=== PATIENT | male | born 1990 | race African-American/Black ===

== ENCOUNTER 2018-10-05 18:26 | Inpatient (IN) | payer OTHER ==
[~2018-10-05] VITALS: Ht 188 cm; Wt 81.6 kg
--- NOTE | 2018-10-05 18:57 | NUR ---
PT PRESENTS TO ED [facility] FOR SI. PER EMS PT GIRLFRIEND CALLED EMS BECAUSE PT WAS STATING HE WAS GOING TO KILL HIMSELF. EMS REPORT THAT PT ANSWERED YES TO SI NO TO HI. WHEN ASKED IF PT HAS PLAN TO HURT HIMSELF PT STATED "YES I WANT TO BE KILLED BY THE FOIL OPERATOR". PT ALSO STS HE HAS RT FOOT PAIN BECAUSE HE STEPPED OFF CURB AND TWISTED HIS FOOT. PT IS CALM/COOPERATIVE, AAOX4, RESP E/U, IN VIEW OF NURSES STATION. PT BELONGINGS LABELED AND PUT IN RADIO ROOM.
--- NOTE | 2018-10-05 19:06 | NUR ---
REPORT GIVEN TO MARY ANTHONY TO ASSUME CARE OF PT.
--- NOTE | 2018-10-05 19:16 | NUR ---
RECEIVED PATIENT FROM RESEARCH ARCHAEOLOGIST NURSE. PATIENT IS RESTING WITH BOTH EYES CLOSED. VS STABLE. SUICIDE PREC IN PLACE. PATIENT IS IN CLOSE VIEW OF NURSING STATION. BELONGINGS IN RADIO ROOM. WILL MONITOR CLOSELY.
[2018-10-05 19:44] LABS: BASOPHIL % 0.5 % (0-2); PLATELET COUNT 196 x10^3mcL (130-400)
[2018-10-05 19:49] LABS: RED CELL DISTRIBUTION WIDTH 15.2 % (11.5-14.5)
[2018-10-05 19:55] LABS: CALCIUM 9.3 mg/dL (8.5-10.1); CHLORIDE SERUM 104 mmol/L (98-107); GFR1 > 60 mL/min; GLUCOSE SERUM 92 mg/dL (74-106); POTASSIUM SERUM 3.9 mmol/L (3.5-5.1); SODIUM SERUM 143 mmol/L (136-145)
[2018-10-05 20:01] LABS: ALBUMIN 3.8 g/dL (3.4-5.0); ALKALINE PHOSPHATASE 66 U/L (46-116); ALT/SGPT 27 U/L (16-63); AST/SGOT 28 U/L (15-37); BILIRUBIN TOTAL 0.7 mg/dL (0.20-1.00); TOTAL PROTEIN, SERUM 6.9 g/dL (6.4-8.2)
--- NOTE | 2018-10-05 20:59 | NUR ---
PROVIDED WITH PATIENT WITH SANDWICH AT APPLE JUICE UPON REQUEST.
--- NOTE | 2018-10-05 21:18 | NUR ---
ENCOURAGED PATIENT TO PROVIDE URINE SAMPLE AT THIS TIME. PATIENT REFUSES TO PROVIDE SAMPLE. PATIENT TURNED BODY AND CLOSED EYES WHEN REQUESTED TO PROVIDE SAMPLE.
[2018-10-05 21:31] LABS: microscopic required? NO
--- NOTE | 2018-10-05 21:35 | NUR ---
PATIENT PROVIDED URINE SAMPLE.
[2018-10-05 21:44] LABS: UA SPECIFIC GRAVITY >=1.030 (1.005-1.035); urine erythrocyte NEGATIVE (NEGATIVE)
--- NOTE | 2018-10-05 22:05 | NUR ---
PATIENT SLEEPING. DENIES PAIN AND DISCOMFORT. SAFETY PREC IN PLACE.
[2018-10-05 22:53] LABS: AMPHETAMINE QUAL UR POSITIVE (See below)
--- NOTE | 2018-10-06 02:40 | NUR ---
SPOKE WITH TELE PSYCH DR MORENO. PROVIDED DR MORENO WITH BACKGROUND OF PATIENT. PATIENT SAT UP IN BED AND PREPARED FOR TELE PSYCH CONSULTATION.
--- NOTE | 2018-10-06 03:01 | NUR ---
PATIENT CLEARED BY TELE PSYCH DR MORENO. DR TRAN NOTIFIED.
--- NOTE | 2018-10-06 03:10 | NUR ---
DR MORENO CALLED AGAIN AND WITH FURTHER EVALUATION RECOMMENDS THAT THE PATIENT BE ADMITTED. DR TRAN NOTIFIED.
--- NOTE | 2018-10-06 04:48 | NUR ---
PATIENT RESTING EASY. NO C/O PAIN OR DISCOMFORT. SAFETY MEASURES REMAIN IN PLACE.
--- NOTE | 2018-10-06 05:26 | NUR ---
PATIENT PLACED ON 5150 HOLD AT THIS TIME FOR SUICIDAL IDEATION. PERSONAL BELONGINGS KEPT IN RADIO ROOM. SAFETY AND SUICIDE PREC IN PLACE. PATIENT ADVISED OF HOLD AND VERBALIZES UNDERSTANDING.
--- NOTE | 2018-10-06 05:48 | NUR ---
PT PLACED ON 5150 HOLD. PT ADVISED OF HOLD. PT VERBALIZED UNDERSTANDING OF HOLD. ORIGINAL HOLD PLACED IN CHART. PRIMARY RN RAJ AND ED DR TRAN INFORMED OF HOLD COMPLETION.
--- NOTE | 2018-10-06 07:08 | NUR ---
Packet received via fax, will begin looking for placement.
--- NOTE | 2018-10-06 07:22 | NUR ---
PATIENT CARE ENDORSED TO AM NURSE MARY THRASHER.
--- NOTE | 2018-10-06 07:30 | NUR ---
RECEIVED PATIENT IN ROOM 7, PATIENT SLEEPING BUT EASILY AROUSABLE. LUNGS - CTA. BS PRESENT X 4 QUADRANTS. B/L UPPER AND LOWER EXT PULSES PALPABLE. AWAITING FOR PLACEMENT AT THIS TIME. PATIENT IN FRONT OF NURSING STATION, B/P AND PULSES OX ON, PATIENT REFUSED TELE MONITORING AT THIS TIME. WILL CONTINUE TO MONITOR//APR RN
--- NOTE | 2018-10-06 08:55 | NUR ---
BREAKFAST GIVEN TO PATIENT AT THIS TIME//APR RN
--- NOTE | 2018-10-06 09:06 | NUR ---
Contacted the following facilities regarding placement: [facility]: s/w Blanca, no beds available, states long waitlist. [facility]: rang continuously, unable to leave message, will try back later. [facility]: s/w Mj, states no beds at this time, D/C planning ongoing at this time, requests to call back after noon today, then fax packet if there are openings. [facility] s/w Alber, states open beds, packet faxed for review. [facility]: s/w Benjamin, no beds available. Will continue to look for placement, will contact with any updates.
--- NOTE | 2018-10-06 09:41 | NUR ---
PATIENT SLEEPING AT THIS TIME//APR RN
--- NOTE | 2018-10-06 10:45 | NUR ---
PATIENT GIVEN JUICE AND SANDWICH PER HIS REQUEST.//JUN RN
--- NOTE | 2018-10-06 13:53 | NUR ---
F/u with [facility]: s/w Greri, states no adult male beds open today
--- NOTE | 2018-10-06 14:31 | NUR ---
PATIENT AMBULATED TO RESTROOM WITH STABLE GAIT, DENIES ANY PAIN AT THIS TIME , APR RN WAITED OUTSIDE OF RESTROOM FOR PATIENT.PATIENT REQUESTED SOMETHING TO EAT, GIVE PATIENT JELLO, CHOCOLATE PUDDING, AND APPLE JUICE. CALLED KITCHEN FOR SANDWICHES AT THIS TIME//APR RN
--- NOTE | 2018-10-06 15:16 | NUR ---
Currently still no beds available at any contracted facilities. Will continue to f/u regarding placement, will contact with any updates.
[2018-10-06 17:27] LABS: CHOLESTEROL/HDL RATIO 2.4
[2018-10-06 17:32] LABS: FREE T4 0.83 ng/dL (0.76-1.46); FREE THYROXINE INDEX 1.8 ug/dL (1.4-4.5); T4(THYROXINE) 5.1 ug/dL (4.7-13.3)
[2018-10-06 17:50] LABS: T3 TOTAL 0.78 ng/mL
--- NOTE | 2018-10-06 18:00 | NUR ---
PATIENT GIVEN DINNER AND ATE 100%.//APR RN
--- NOTE | 2018-10-06 19:10 | NUR ---
RECEIVED REPORT FROM MARY THRASHER FOR CONTINUED CARE OF PATIENT.
--- NOTE | 2018-10-06 19:14 | NUR ---
REPORT GIVEN TO MARY BEACH FOR MICHAEL ENDORSEMENT//APR RN
--- NOTE | 2018-10-06 19:25 | NUR ---
INTRODUCED SELF TO PATIENT. PT COOPERATIVE. BREATHING E/U, NAD NOTED. WILL CONTINUE TO MONITOR.
--- NOTE | 2018-10-06 19:39 | NUR ---
PROVIDED PATIENT WATER PER HIS REQUEST.
--- NOTE | 2018-10-06 19:57 | NUR ---
PATIENT WITHIN FULL VIEW OF NURSES STATION. SAFETY CHECK OF ROOM COMPLETE. NEW PSYCH ASSESSMENT COMPLETED. WILL CONTINUE TO MONITOR.
--- NOTE | 2018-10-06 20:54 | NUR ---
PATIENT SLEEPING ON GURNEY IN A POSITION OF COMFORT. NAD NOTED. VSS. BREATHING E/U. WILL CONTINUE TO MONITOR.
--- NOTE | 2018-10-06 21:18 | NUR ---
ATTEMPTED TO CALL REPORT TO MARY HERNÁNDEZ - SHE WAS BUSY WITH A PATIENT AND WILL CALL ME RIGHT BACK.
[2018-10-06] MEDS ORDERED: REMERON30 MG PO (22:20)
[2018-10-06] MEDS ORDERED: ZOLOFT25 MG PO (22:21)
[2018-10-06] MEDS ORDERED: DEPAKOTE500 MG PO (22:21)
--- NOTE | 2018-10-06 22:22 | NUR ---
MEDICATION RECONCILIATION COMPLETED --
--- NOTE | 2018-10-06 22:48 | NUR ---
RECEIVED PT VIA GUERNEY FROM E/D, ACCOMPANIED BY TRANSPORTER. PT A/A/O X 4, DEPRESSED BUT COOPERATIVE TO CARE AT THIS TIME; STATES THAT HE STILL HAS S/I (WANTS TO BE KILLED BY SENIOR MEDIA BUYER) AND THAT HE VISUALLY HALLUCINATES W/ SEEING SHADOWS IN THE ROOM; C/O CONSTANT H/A 12/18 2/2 TO FALL FROM [facility] THAT HE HAD 10/05/18; SMALL BUMP NOTED AT THE BACK OF HIS HEAD, SKIN INTACT. DENIES CHEST PAIN OR DISCOMFORT AT THIS TIME. NO ACUTE RESPIRATORY DISTRESS NOTED. ABD SOFT, FLAT, NON-TENDER, NORMOACTIVE BOWEL SOUNDS X 4 QUADS, LAST BM 10/06/18, DIARRHEA. AMBULATORY, NO GAIT OR BALANCE IMPAIRMENT NOTED. IV SITE LAC 22G, CDI. ORIENTED PT TO ROOM, BED CONTROLS, CALL LIGHT SYSTEM. SIDE RAILS UP X 2, BED IN LOW POSITION, SITTER BY BEDSIDE. REMINDED PT IS IN A SAFE, HEALING ENVIRONMENT; PT VERBALIZED UNDERSTANDING. WILL ENDORSE TO MARY HERNÁNDEZ.
--- NOTE | 2018-10-06 23:00 | NUR ---
UPON ASSESSMENT, PT RESTING IN BED WITH EYES CLOSED. PT S/S OF PAIN NOTED. WILL CONTINUE TO MONITOR.
[2018-10-06 23:22] VITALS: BP 121/62
--- NOTE | 2018-10-07 05:20 | NUR ---
PT RESTED IN INTERVALS DURING SHIFT, NO ACUTE CHANGES OCCURRING OVERNIGHT. PT REMAINS ON 5150 HOLD, FOR DANGER TO SELF. PT STILL REPORTING WANTING TO & VISUAL HALLUCINATIONS. IV SITE REMAINS PATENT TO LAC, SALINE LOCKED. ALL COMFORT AND SAFETY MEASURES PROVIDED FOR, CALL LIGHT WITHIN REACH, BED IN LOWEST POSITION, WILL CONTINUE TO MONITOR.
--- NOTE | 2018-10-07 05:53 | NUR ---
No vacancy at any of the designated facilities thru ourthe shift , will endorsed to AM to continue to look for placement.
[2018-10-07 06:26] VITALS: BP 125/50
[2018-10-07 07:09] LABS: BASOPHIL % 0.4 % (0-2); PLATELET COUNT 183 x10^3mcL (130-400)
[2018-10-07 07:11] LABS: CALCIUM 8.9 mg/dL (8.5-10.1); CARBON DIOXIDE 30.8 mmol/L (21-32); CHLORIDE SERUM 105 mmol/L (98-107); CREATININE SERUM 0.9 mg/dL (0.7-1.3); GFR1 > 60 mL/min; GLUCOSE SERUM 102 mg/dL (74-106); PHOSPHOROUS 5.3 mg/dL (2.5-4.9); POTASSIUM SERUM 4.4 mmol/L (3.5-5.1); SODIUM SERUM 144 mmol/L (136-145)
--- NOTE | 2018-10-07 07:20 | NUR ---
RECEIVED PT FROM B2B APPOINTMENT SETTER. PT AWAKE, ALERT. A/OX4. PT DENIES HEADACHE AT THIS TIME. PT ON ROOM AIR WITH NO RESP DISTRESS NOTED. IV ACCESS LAC SALINE LOCKED. PERIPHERAL PULSES PALPABLE, NO EDEMA NOTED. ACTIVE BS NOTED, PT REPORTS BM YESTERDAY WITH NO APPARENT ISSUES AT THIS TIME. PT REPORTS HAVING SUICIDAL THOUGHTS "OFF AND ON". HIS PLAN IS TO BE "KILLED BY PROCESSOR GRAIN". PT STATES HE SEES SHADOWS. PT CALM AND COOPERATIVE AT THIS TIME. SITTER AT BEDSIDE. SAFETY MEASURES IN PLACE, BED LOW AND LOCKED. CALL LIGHT WITHIN REACH.
[2018-10-07 07:25] LABS: RED CELL DISTRIBUTION WIDTH 15.6 % (11.5-14.5)
--- NOTE | 2018-10-07 07:35 | NUR ---
ENDORSED ALL CARE TO DAYSHIFT NURSE, NO ACUTE DISTRESS NOTED. ALL QUESTIONS AND CONCERNS ADDRESSED, CALL LIGHT WITHIN REACH, BED IN LOWEST POSITION.
--- NOTE | 2018-10-07 08:20 | NUR ---
DUE MEDICATIONS ADMINISTERED ORDERED. PT CALM AND COOPERATIVE AT THIS TIME. PT DENIES PAIN. SITTER AT BEDSIDE. SAFETY MEASURES MAINTAINED.
[2018-10-07 08:44] VITALS: BP 109/57
--- NOTE | 2018-10-07 12:42 | NUR ---
F/U with potential accepting facilities: [facility]: s/w Kol[place], no beds [facility]: s/w Brittany, no beds [facility]: s/w Mariia, no beds [facility]: s/w Sharon, no beds [facility] s/w Kolby, no beds.
--- NOTE | 2018-10-07 13:11 | NUR ---
PT RESTING COMFORTABLY. SITTER AT BEDSIDE. ALL NEEDS MET AT THIS TIME.
--- NOTE | 2018-10-07 13:11 | NUR ---
DUE MEDICATION ADMNINSTERED. PT AWAKE, ALERT, COOPERATIVE. NO DISTRESS OR PAIN NOTED AT THIS TIME. SITTER AT BEDSIDE. SAFETY MAINTAINED.
--- NOTE | 2018-10-07 15:32 | NUR ---
PT RESTING COMFORTABLY. SITTER AT BEDSIDE. ALL NEEDS MET AT THIS TIME.
[2018-10-07 17:03] VITALS: BP 115/60
--- NOTE | 2018-10-07 17:29 | NUR ---
PT AWAKE, RESTING COMFORTABLY AT THIS TIME. PT CALM AND COOPERATIVE. DUE MED ADMINISTERED ORDERED. SITTER AT BEDSIDE. WILL MONITOR.
--- NOTE | 2018-10-07 18:44 | NUR ---
PATIENT STABLE AT THIS TIME. ALL NEEDS TENDED TO THROUGHOUT SHIFT. WILL CONTINUE TO MONITOR AND ENDORSE CARE TO DRYING ROOM OPERATOR.
--- NOTE | 2018-10-07 19:45 | NUR ---
RECEIVED REPORT FROM DAY SHIFT RN. PT RESTING WITH EYES CLOSED. AROUSABLE WITH VERBAL STIMULI. ORIENTED X4. NO SOB ON ROOM AIR. NO C/O PAIN. IV TO LAC, SALINE LOCKED. PT STATES FEELING DEPRESSED AND HAVING THOUGHTS OF HARMING SELF. NO ACTIVE PLAN. PT STATES HAVING ON AND OFF VISUAL HALLUCINATIONS. SAFETY MEASURES IN PLACE. BED IN LOWEST POSITION. SIDE RAILS UP X2. CALL LIGHT WITHIN REACH. SITTER AT BEDSIDE.
[2018-10-07 20:57] VITALS: BP 104/52
--- NOTE | 2018-10-08 01:45 | NUR ---
PT RESTING WITH EYES CLOSED. BREATHING EVEN AND UNLABORED. NO DISTRESS NOTED. CALL LIGHT WITHIN REACH. SITTER AT BEDSIDE.
[2018-10-08 04:50] VITALS: BP 97/60
[2018-10-08 06:16] LABS: BASOPHIL % 0.4 % (0-2); PLATELET COUNT 187 x10^3mcL (130-400)
[2018-10-08 06:20] LABS: CALCIUM 8.3 mg/dL (8.5-10.1); CARBON DIOXIDE 27.7 mmol/L (21-32); CHLORIDE SERUM 108 mmol/L (98-107); CREATININE SERUM 0.8 mg/dL (0.7-1.3); GFR1 > 60 mL/min; GLUCOSE SERUM 115 mg/dL (74-106); PHOSPHOROUS 3.8 mg/dL (2.5-4.9); POTASSIUM SERUM 4.1 mmol/L (3.5-5.1); SODIUM SERUM 143 mmol/L (136-145)
--- NOTE | 2018-10-08 07:00 | NUR ---
PT RESTED AT LONG INTERVALS THROUGHOUT SHIFT. NO ACUTE DISTRESS NOTED. PT STATES FEELING DEPRESSED. HAVING THOUGHTS OF HARMING SELF BUT NO ACTIVE PLAN. ON AND OFF VISUAL HALLUCINATIONS. SAFETY MEASURES MAINTAINED. SITTER AT BEDSIDE. WILL ENDORSE CARE TO DAY SHIFT RN.
[2018-10-08 07:14] LABS: RED CELL DISTRIBUTION WIDTH 15.6 % (11.5-14.5)
[2018-10-08 07:15] LABS: rbc morphology (normal/abnorm) ABNORMAL (NORMAL)
[2018-10-08 07:58] VITALS: BP 115/52
--- NOTE | 2018-10-08 11:33 | NUR ---
IN BED RESTING. DENIES ANY DISCOMFORT AT THIS TIME.
--- NOTE | 2018-10-08 14:38 | NUR ---
TAKING A NAP IN BED. SITTER IN ATTENDANCE.
[2018-10-08 17:06] VITALS: BP 101/52
--- NOTE | 2018-10-08 17:28 | NUR ---
QIET IN BED. STATED " I AM OK. NO PAIN"
--- NOTE | 2018-10-08 17:46 | NUR ---
Just received access to enter notes for inpatient. Facilites were called in the am at 11:00 [facility] s/w marsha no beds but packet faxed for wait list [facility] s/w David no beds but packet faxed for wait list [facility] s/w alexandr no beds [facility]/w Tessa no beds [facility]/w Ray no beds [facility] s/w Walt no beds [facility] s/w Don no beds 16:44 [facility] s/w Dav no beds [facility] s/w Onelia no beds [facility] s/w Amita no beds [facility] s/w Christina no beds [facility] s/w Aleshia no beds [facility] s/w Fanta no beds [facility] s/w don no beds
--- NOTE | 2018-10-08 19:14 | NUR ---
HANDOFF REPORT GIVEN TO MARY COLEMAN. PATIENT STATED. " I AM OKAY". SITTER AT BEDSIDE.
[2018-10-08 19:30] VITALS: BP 123/67
--- NOTE | 2018-10-08 19:30 | NUR ---
RECEIVED PT AWAKE ALERT AND VERBALLY RESPONSIVE WATCHING TV AT THIS TIME.VERBALIZED HEARING VOICES TO HURT HIMSELF ON AND OFF.DENIES ANYTHING AT THIS TIME.NO VISUAL HALLUCINATION NOTED.ENCOURAGED TO VERBALIZED HIS FEELINGS/THOUGHT.SITTER AT BEDSIDE.WILL CONTINUE TO MONITOR.
--- NOTE | 2018-10-09 04:46 | NUR ---
PT SLEPT WELL WITH NURSE AT BEDSIDE TO ASSIST WITH ADLS.APPEARS CALM AND NO AGITATION NOTED.ENCOURAGED TO VERBALIZED FEELING/THOUGHTS.ALL NEEDS MET.WILL CONTINUE TO MONITOR.
[2018-10-09 05:44] VITALS: BP 125/76
[2018-10-09 06:18] LABS: BASOPHIL % 0.5 % (0-2); PLATELET COUNT 189 x10^3mcL (130-400)
[2018-10-09 06:35] LABS: CALCIUM 7.7 mg/dL (8.5-10.1); CARBON DIOXIDE 28.3 mmol/L (21-32); CHLORIDE SERUM 108 mmol/L (98-107); CREATININE SERUM 0.7 mg/dL (0.7-1.3); GFR1 > 60 mL/min; GLUCOSE SERUM 120 mg/dL (74-106); POTASSIUM SERUM 4.1 mmol/L (3.5-5.1); SODIUM SERUM 142 mmol/L (136-145)
[2018-10-09 07:07] LABS: RED CELL DISTRIBUTION WIDTH 15.1 % (11.5-14.5)
--- NOTE | 2018-10-09 07:35 | NUR ---
RECEIVED PATIENT AWAKE/ALERT IN BED EATING BREAKFAST, EPHRAIM STUART AT BEDSIDE DISCUSS POC AND PSYCH MEDS REGIMEN WITH PATIENT. PATIENT VERBALIZE NO SUICIDAL THOUGHTS. SITTER AT BEDSIDE FOR SAFETY MONITOR.
--- NOTE | 2018-10-09 07:45 | NUR ---
[facility] still working on placement, will f/u with facilities. Will contact with any updates.
--- NOTE | 2018-10-09 09:00 | NUR ---
PATIENT AWAKE/ALERT IN BED TOOK ALL HIS MEDS WITHOUT PROBLEM. NEEDS MET. CONT TO MONITOR FOR SAFETY. SITTER REMAIN AT BEDSIDE.
[2018-10-09 09:16] VITALS: BP 111/66
--- NOTE | 2018-10-09 11:33 | NUR ---
Advised that pt is pending a psych re-eval as his 5150 is . [facility] will continue to look for psych placement upon receiving copy of new 5150 if pt is placed on one
--- NOTE | 2018-10-09 13:42 | NUR ---
PATIENT SAT UP AT SIDE OF BED, CALM. DONE WITH LUNCH. NO COMPLAINS. MOTRIN PO ADMINISTERED. NEEDS MET. CONT TO MONITOR.
--- NOTE | 2018-10-09 14:23 | NUR ---
Still waiting for psych re-eval to see if patient still meets criteria for inpatient psych placement
--- NOTE | 2018-10-09 14:49 | NUR ---
SADE(N.P.)MADE AWARE OF 'S ORDER D/C 5150 HOLD.
--- NOTE | 2018-10-09 16:23 | NUR ---
CALLED AND SPOKE TO BRENDA(MARKETING PROJECT MANAGER) AND MADE HER AWARE THAT HAD ALREADY CLEARED THE PT FOR 5150 HOLD.
--- NOTE | 2018-10-09 16:44 | NUR ---
PER DR. ENRIQUEZ D/C 6000 HOLD.
[2018-10-09 17:10] VITALS: BP 115/67
--- NOTE | 2018-10-09 17:31 | NUR ---
PATIENT SITTING UP IN BED EATING HIS DINNER, NO COMPLAINS. MOTRIN PO ADMINISTERED. ICE WATER REFILL. NEEDS MET. CONT TO MONITOR.
--- NOTE | 2018-10-09 18:28 | NUR ---
PATIENT SLEEPING AT THIS TIME. CONT TO MONITOR.
--- NOTE | 2018-10-09 19:16 | NUR ---
Received a call from S[facility] stating that patient has been cleared from [id number] and patient will be dc's in the am
--- NOTE | 2018-10-09 19:35 | NUR ---
RECEIVED REPORT FROM AM NURSE. PT LAYING DOWN IN BED. PT AAOX4, FOLLOW COMMANDS. ABLE TO MAKE NEEDS KNOWN. MED-SURG. DENIES CP/PRESSURE AT THIS TIME. PALPABLE PULSES TO ALL EXTREMITIES. NO EDEMA NOTED. LUNG SOUNDS CTA ON RA. BREATHING EVEN AND UNLABORED. ABD SOFT AND NONDISTENDED. ACTIVE BS X4 QUAD. DENIES ANY N/V/D. VOIDS FREELY BRP. AMBULATORY. IV SL TO LAC FLUSHING WELL. SITE FREE FROM REDNESS AND SWELLING. PT STATES HEARING VOICES. TELLING HIM TO KILL HIMSELF. STAFF AT BEDSIDE. NO ACUTE DISTRESS NOTED. BED AT LOWEST SETTING. CALL LIGHT WITHING REACH. WILL CONTINUE TO MINITOR.
[2018-10-09 21:07] VITALS: BP 101/46
[2018-10-09 21:38] VITALS: Ht 188 cm; Wt 81.6 kg
--- NOTE | 2018-10-10 02:04 | NUR ---
PT LAYING DOWN IN BED WITH EYES CLOSED. BREATHING EVEN AND UNLABORED ON RA. NO ACUTE DISTRES NOTED. STAFF AT BEDSIDE. BED AT LOWEST SETTING. SIDE RAILS X2 UP. CALL LIGHT WITHING REACH. WILL CONTINUE TO MONITOR.
[2018-10-10 05:30] VITALS: BP 119/69
--- NOTE | 2018-10-10 05:46 | NUR ---
PT SLEPT WELL THROUGHOUT THE NIGHT. BREATHING EVEN AND UNLBORED ON RA. NO ACUTE DISTRES NOTED. ENCOURAGED TO VERBALIZE FEELINGS/ THOUGHTS. DENIES HALLUCINATIONS AT THIS TIME. STAFF REMAINS AT BEDSIDE FOR SAFETY. ALL NEEDS ASSESSED AND ATTENDED TO. BED AT LOWEST SETTING. SIDE RAILS X2 UP. CALL LIGHT WITHING REACH. WILL ENDORSE CARE TO AM NURSE.
--- NOTE | 2018-10-10 06:48 | NUR ---
PT C/O 07/18 SHOULDER PAIN. NO ALLEVIATING FACTORS. MEDICATED WITH PRN TYLENOL PER MAY. PT STATED FEELING BETTER. WILL ENDORSE CARE TO AM NURSE.
--- NOTE | 2018-10-10 08:00 | NUR ---
A/A/OX4; CLEAR SPEECH. DENIED SUICIDE IDEATION NOW. BREATHING SOUND CLEAR STEVEN. DENIED PAIN NOW. IVHL'D TO LAC. 22G. AMBULATED ON GAIT. TOLERATED REGULAR DIET BREAKFAST. BRP. ERIC IN ROOM FOR SAFETY MONITOR. ROOM CLOSE TO STATION.
[2018-10-10 08:11] VITALS: BP 123/63
--- NOTE | 2018-10-10 09:23 | NUR ---
PATIENT WALKED OUT OF ROOM AND SAID, "I NEED GO HOME". I ASKED ASKED PATIENT TO BE BACK TO ROOM AND WAITING FOR PCP'S ORDER AND BUS/TAXI VOUCHER. PAISUMIT REFUSED. I FOLLOWED PATIENT IN HEARD WAY UNTIL NEAR DOOR OF ROOM 234. PATIENT AGREED TO BACK TO [address]OU[address] TO SIGN AMA. PATEINT FOLLOWED ME AND WALKED BACK TO NURSING STATION OF [address].
--- NOTE | 2018-10-10 09:28 | NUR ---
WHEN I WAS USE COMPUTER AND PRINTING, PATIENT ELOPTED FROM [facility] [place].
--- NOTE | 2018-10-10 09:30 | NUR ---
PATIENT REFUSED MEDS AND ELOPED FROM HOSPITAL.
== END 2018-10-10 09:34 | disposition left against medical advice (07) | DRG 207 ==
LOC: ED 18:26 → MU 10-06 14:55
PROVIDERS: Emergency Medicine; Internal Medicine; ADMIT General Practice
DX: I31.9 Disease of pericardium, unspecified (principal); F25.0 Schizoaffective disorder, bipolar type; R45.851 Suicidal ideations; F15.10 Other stimulant abuse, uncomplicated; F12.10 Cannabis abuse, uncomplicated; F17.210 Nicotine dependence, cigarettes, uncomplicated; F41.9 Anxiety disorder, unspecified; J45.909 Unspecified asthma, uncomplicated
CPT/HCPCS: 84439; G0378; G0480